=== PATIENT | male | born 1980 | race Caucasian/White ===

== ENCOUNTER 2024-03-25 18:06 | Observation (INO) | payer OTHER ==
[2024-03-25 18:23] VITALS: BMI 27.2
[2024-03-25] MEDS ORDERED: Ondansetron ODT 4 MG TAB PO PRN (18:42)
[2024-03-25] MEDS ORDERED: Acetaminophen 325 MG TAB PO PRN (18:42)
[2024-03-25] MEDS ORDERED: Zolpidem Tartrate 5 MG TAB PO PRN (18:49)
[2024-03-25 19:25] LABS: Troponin I Less than 0.010 ng/mL (< 0.028)
[2024-03-25] MEDS: Aspirin 81 mg Enteric Coated Tablet PO SCH (20:24)
[2024-03-25] MEDS: Pantoprazole DR 40 MG TAB PO SCH (20:24)
[2024-03-25] MEDS: Atorvastatin Calcium 40 MG TAB PO SCH (20:24)
[2024-03-25 23:14] LABS: Troponin I Less than 0.010 ng/mL (< 0.028)
[2024-03-26 03:45] LABS: #Basophils 0.07 10x3/uL (0.0-0.2); #Eosinphils 0.15 10x3/uL (0.0-0.5); #Monocytes 0.65 10x3/uL (0.0-1.1); %Basophils 0.7 % (0.0-2.0); %Eosinophils 1.5 % (0.0-6.0); %Lymphocytes 16.8 % (18.0-47.0); %Monocytes 6.6 % (0.0-10.0); %Neutrophils 73.7 % (40.0-75.0); Mean Corpuscular HGB CONC 35.7 g/dL (32.0-36.0); Mean Corpuscular Hemoglobin 33.7 pg (27.0-33.0); Mean Corpuscular Volume 94.4 fL (81.2-95.1); Mean Platelet Volume 10.6 fL (7.4-10.4); Platelet Count 288 10x3/uL (150-450); RBC Distribution Width 12.6 % (11.5-14.5); Red Blood Cell (RBC) Count 4.45 10x6/uL (4.32-5.72); White Blood Cell (WBC) Count 9.8 10x3/uL (3.5-10.5)
[2024-03-26 03:59] LABS: Anion Gap 13 mmol/L (10-20); BUN (Urea Nitrogen) 13 mg/dL (8.9-20.6); Calc. Creatinine Clearance 88 mL/min (70-130); Calcium 8.6 mg/dL (7.8-10.44); Carbon Dioxide 23 mmol/L (22-29); Cardiac Risk 4.3 (Less than 4.5); Chloride 105 mmol/L (98-107); Cholesterol 187 mg/dl (< 200 Desired); Estimated GFR 70; Glucose 128 mg/dL (70-105); HDL Cholesterol 43 mg/dL (>60 Neg Risk); LDL Cholesterol, Calculated 119 mg/dL; Potassium 4.1 mmol/L (3.5-5.1); Sodium 137 mmol/L (136-145); Triglycerides 123 mg/dL (Less than 150)
[2024-03-26 04:06] LABS: Troponin I Less than 0.010 ng/mL (< 0.028)
[2024-03-26] MEDS: Aspirin 81 mg Enteric Coated Tablet PO SCH (08:19)
[2024-03-26] MEDS: Loratadine 10 MG TAB PO SCH (08:19)
[2024-03-26] MEDS: ALPRAZolam 0.5 MG TAB PO SCH (10:16)
[2024-03-26 12:00] VITALS: BP 112/63; TEMP 97.7
== END 2024-03-26 16:38 | disposition home or self-care (01) ==
LOC: CSHTELE 18:06 → INTOOBSV 18:06
PROVIDERS: ADMIT Student in an Organized Health Care Education/Training Program; ATTEND Internal Medicine
PROC: B246ZZZ Ultrasonography of Right and Left Heart (ICD-10-PCS; principal; 2024-03-26)
DX: R53.1 Weakness (principal); R20.0 Anesthesia of skin; R20.2 Paresthesia of skin; I34.0 Nonrheumatic mitral (valve) insufficiency; K21.9 Gastro-esophageal reflux disease without esophagitis; F17.210 Nicotine dependence, cigarettes, uncomplicated; F12.90 Cannabis use, unspecified, uncomplicated; Z79.899 Other long term (current) drug therapy
CPT/HCPCS: 36415; 70551; 72141; 80048; 80061; 84484; 85025; 93306